=== PATIENT | female | born 1970 | race African-American/Black ===

== ENCOUNTER 2024-12-31 11:57 | Emergency (ER) | payer BC ==
[~2024-12-31] VITALS: Ht 165.1 cm; Wt 77.6 kg
[2024-12-31 12:01] VITALS: O2SAT 100
[2024-12-31 12:06] VITALS: BP 136/83; PULSE 73; RESP 14; TEMP 36.8; O2SAT 100
== END 2024-12-31 13:46 | disposition home or self-care (01) ==
LOC: ER 11:57
DX: Z13.29 Encounter for screening for other suspected endocrine disorder (principal); I10 Essential (primary) hypertension; Z88.0 Allergy status to penicillin; Z90.710 Acquired absence of both cervix and uterus
CPT/HCPCS: 99281